=== PATIENT | female | born 1955 | race Caucasian/White ===

== ENCOUNTER 2017-12-09 07:25 | Day surgery (SDC) | payer OTHER | END 2017-12-09 11:26 | disposition home or self-care (01) | LOC: AMB-ENDOS 07:25 | DX: D12.0 Benign neoplasm of cecum (principal); D12.3 Benign neoplasm of transverse colon; K57.30 Diverticulosis of large intestine without perforation or abscess without bleeding ==

== ENCOUNTER 2025-01-06 05:33 | Day surgery (SDC) | payer OTHER ==
[~2025-01-06 05:33] MED LIST: DEXLANSOPRAZOLE; ENDOMETRIN100 MG; IMURAN50 MG; IRBESARTAN300 MG; JANUVIA100 MG; MILLIPRED5 MG; TOPROL XL200 MG; URSODIOL
[2025-01-06] MEDS ORDERED: HEPARIN SODIUM,PORCINE/PF 100 UNIT/ML SYRINGE IV ONE (07:15)
[2025-01-06] MEDS ORDERED: LIDOCAINE HCL 1%/EPINEPHRINE 20ML VIAL IJ ONE (07:15)
[2025-01-06] MEDS ORDERED: BUPIVACAINE HCL/MPF 0.5% 30ML VIAL ONE (07:15)
[2025-01-06] MEDS ORDERED: CEFAZOLIN SODIUM 1,000 MG VIAL ONE (07:20)
[2025-01-06] MEDS ORDERED: TRAM1TAB98 PO (08:00)
[2025-01-06] MEDS ORDERED: ENALAPRILAT DIHYDRATE 1.25 MG/ML VIAL IV ONE ×4 (08:50→09:30)
== END 2025-01-06 10:50 | disposition home or self-care (01) ==
LOC: EDBD → CIR.AMB 05:33
PROVIDERS: ATTEND Surgery
DX: C22.1 Intrahepatic bile duct carcinoma (principal); I10 Essential (primary) hypertension; E11.9 Type 2 diabetes mellitus without complications; M19.90 Unspecified osteoarthritis, unspecified site
CPT/HCPCS: 36561; C1751